=== PATIENT | male | born 1960 | race African-American/Black ===

== ENCOUNTER → 2016-10-26 | Outpatient (CLI) | payer BC ==
--- NOTE | ~2016-10-26 | US77 ---
[facility] A Service of [facility] RADIOLOGY TEXT RESULTS PATIENT: JACE PORTER LOCATION: [facility] : 56 UNIT #: [id number] AGE: [address]: Kristofer Jose MD SEX: M ORDER DR: [id number] [facility] [address] [place], [place] [address] [id number] O MR#: [id number] Acc #: [id number] NAME: JACE PORTER : 1960 SEX: M STUDY DATE/TIME: 10/26/2016 15:50 UNIT: US ROOM: STUDY DESCRIPTION: US Kidney Bilateral Complete Attending Physician: Kristofer Jose M.D. Referring Physician: Kristofer Jose M.D. Ordering Physician: Kristofer Jose M.D. Primary Care Physician: Anita Munguia M.D. MEDICAL IMAGING REPORT This report is preliminary unless electronic signature is present EXAM Renal ultrasound 10/26/2016 HISTORY Chronic kidney disease stage III, left flank pain for 2 months. FINDINGS The right kidney measures 9.6 cm while the left kidney measures 10.9 cm in longitudinal dimensions. There is no evidence of hydronephrosis or nephrolithiasis. No cystic or solid mass lesions were seen on either kidney. There is normal renal cortical echogenicity. Images of the bladder are normal. IMPRESSION 1. Negative renal ultrasound. 2. Images of the bladder are normal. Dictated by... Jayy Read M.D. THIS IS AN ELECTRONICALLY VERIFIED REPORT Jayy Read M.D. at 10/28/2016 2:25 PM KRT/gregoria TD: 10/27/2016 06:21 JOB #: [id number] MEDICAL IMAGING REPORT COPY
== END | disposition home or self-care (01) ==
LOC: CGUS 15:27
DX: N18.3 Chronic kidney disease, stage 3 (moderate) (principal)
CPT/HCPCS: 76770